=== PATIENT | female | born 1955 | race Caucasian/White ===

== ENCOUNTER 2018-05-11 13:45 | Outpatient (RCR) | payer BC, SELFPAY ==
--- NOTE | 2018-04-21 16:04 | PT.OIE ---
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) Other spondylosis with radiculopathy, cervical region (04/20/18) Abnormal posture (04/20/18) Weakness (04/20/18) Adverse effect of antineoplastic and immunosuppressive drugs, initial encounter (04/20/18) Past Medical History (Last Reviewed 03/17/18 @ 10:08 by Brayan Dickson DO) Hyperlipemia (Chronic Unknown) Panic disorder (Chronic Unknown) Breast cancer (Resolved Unknown) Chickenpox (Resolved Unknown) Measles (Resolved Unknown) Past Surgical History (Last Reviewed 03/17/18 @ 10:08 by Brayan Dickson DO) History of back surgery (Resolved 1986) Status post breast lumpectomy Provider Visit Care Team Role Provider Type Anyi Mcneil PA-C Primary Care Provider Advanced Records Management Director Specialty: Internal Medicine Address: [address] [place] [address] Email: Brayan Dickson DO Attending Provider Physician Specialty: Physiatry Pain Management Address: [address] [place] [address] Email: Physical Therapy Initial Evaluation PT-OP-A Visit Information Start: 04/13/18 07:24 Freq: Status: Active Protocol: Document 04/20/18 12:15 [facility] (Rec: 04/21/18 12:14 [facility] [id number]) Out-Patient Physical Therapy Visit Information Visit Information Visit Type Initial Evaluation Visit Start Time 12:15 Visit Stop Time 13:05 Total Visit Minutes 50 Visit Number 1 Number of FUR DRESSER Visits 0 PT-OP-B Current Condition Start: 04/13/18 07:24 Freq: Status: Active Protocol: Document 04/20/18 12:15 [facility] (Rec: 04/21/18 14:29 [facility] [id number]) Current Condition History of Current Condition Onset Date 3 months ago Current Complaints neck pain w/(B) radicular pain History of Current Condition Pt c/o neck/upper thoracic pain that radiates down post brachium & ulnar side of forearm into 3rd and 4th fingers. Pt reports unsure of how it started and reports burning sensation. She reports X-ray with results showing bone spurs in neck. Pt has hx of breast cancer, but is CA free now afer chemo & radiation & R lumpectomy in ' 06. She also has hx of appendix sx, gallbladder sx & sinus surgeries. 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 She has found that if she lengthens her neck & spine into good posture, the pain decreases. Prior Treatments and Tests Xray Future Testing and Treatments Planned MRI is ordered-pt has not completed this d/t cost Treatment Goals Patient/Caregiver Goals Dec pain PT-OP-C Subjective Start: 04/13/18 07:24 Freq: Status: Active Protocol: Document 04/20/18 12:15 [facility] (Rec: 04/21/18 12:14 [facility] [id number]) Patient Questionnaires Neck Disability Index NDI Score 16 Neck Disability Index Impairment 20 to 39% Impaired (Score 10- 19) OP-PT Pain Assessment Location Bilateral Neck Pain Location Details cervical down arms ulnar side to 3&4 fingers Intensity 7 Scale Used Numeric (1 - 10) Description Burning Other Pain Aggravating Factors laying flat, lifting, pain in middle of night Other Pain Alleviating Factors good posture (stretching up), heat PT-OP-F Manual Assessment Start: 04/13/18 07:24 Freq: Status: Active Protocol: Document 04/20/18 12:15 [facility] (Rec: 04/21/18 14:29 [facility] [id number]) Manual Assessments Soft Tissue Assessment Soft Tissue Mobility Assessment Tigthness in:UT, LS, scalenes, SO, pecs B PT-OP-J Posture/Palpation/Skin Start: 04/13/18 07:24 Freq: Status: Active Protocol: Document 04/20/18 12:15 [facility] (Rec: 04/21/18 14:29 [facility] [id number]) Posture Evaluation Comments Posture Comments Fwd head and neck position PT-OP-K Range of Motion Start: 04/13/18 07:24 Freq: Status: Active Protocol: Document 04/20/18 12:15 [facility] (Rec: 04/20/18 13:03 [facility] [id number]) Cervical Spine Range of Motion Cervical Spine Active Degrees Testing Position Sitting Flexion 53 Extension 56 Rotation Left 65 Rotation Right 43 Lateral Flexion Left 25 Lateral Flexion Right 35 Comments pain L T1 region with SB B; ext w/crepitis; pain w/ R rotation PT-OP-L Special Tests Start: 04/13/18 07:24 Freq: Status: Active Protocol: Document 04/20/18 12:15 [facility] (Rec: 04/20/18 13:03 [facility] [id number]) Special Tests Cervical Spine Special Tests Spurling's Test Test Results neg Neural Special Tests- Upper Body Upper Limb Tension Test Test Results passive abd Comments R 45 deg L 80 deg PT-OP-M Strength Start: 04/13/18 07:24 Freq: Status: Active Protocol: Document 04/20/18 12:15 [facility] (Rec: 04/20/18 13:03 [facility] [id number]) Shoulder Strength Shoulder Manual Muscle Testing Right Flexion 4- Good- Extension 4- Good- Abduction (C5) 4- Good- External Rotation 4 Good Internal Rotation 5 Normal Left Flexion 4 Good Extension 4+ Good+ Abduction (C5) 4 Good External Rotation 4 Good Internal Rotation 5 Normal Hand Cost Reduction Engineer/Pinch Strength Hand Strength Right Cost Reduction Engineer (lbs) 52 Left Cost Reduction Engineer (lbs) 65 PT-OP-Q Treatments Start: 04/13/18 07:24 Freq: Status: Active Protocol: Document 04/20/18 12:15 [facility] (Rec: 04/21/18 14:29 [facility] [id number]) Therapeutic Exercises Standing Exercises 2 Standing Exercise Name wall roll up with 90/90 ER 1 Standing Exercise Name pec straight arm & 90/90 ER stretch Side bilateral Therapeutic Activity Therapeutic Activity 1 Name sleeping position Comments s/l & supine PT-OP-T Assessment and Plan Start: 04/13/18 07:24 Freq: Status: Active Protocol: Document 04/20/18 12:15 [facility] (Rec: 04/21/18 14:29 [facility] [id number]) Physical Therapy Assessment Rehab Potential Rehabilitation Potential Good Evaluation Complexity Number of Personal Factors/Comorbidities 3 or More Number of Body Systems Impaired 4 or More Clinical Presentation at Evaluation Stable Impairments Impairments Functional Activities Pain Posture Soft Tissue Mobility Strength Goals Three Impairment ROM Halfway Goal (LTG) Pt will have normal ROM of neck to allow her to drive & do daily activities without pain. LTG Duration 06/22/18 Two Impairment strength Halfway Goal (LTG) 5/5 UE strength to allow pt to do volunteer activities without pain LTG Duration 06/21/18 One Impairment Posture Short Term Goal (STG) Pt will present with good posture without cueing. STG Duration 05/21/18 Assessment Summary Assessment Pt presents with cervical radiculopathy into BUEs. Pt does have overall UE weakness & mild fwd head & shoulders. Physical Therapy Plan Frequency and Duration Frequency of Treatment 1x/Week Duration of Treatment 2 months Plan of Care Start Date 04/20/18 Plan of Care End Date 06/21/18 Therapeutic Interventions Therapeutic Interventions Home Exercise Program Joint Mobilizations Manual Therapy Patient/Caregiver Education Self-Care/Home Management Soft Tissue Mobilization Taping Therapeutic Activities Therapeutic Exercises Modalities Cold Pack/Ice Massage Hot Packs Traction- Mechanical Next Visit Focus/Plan Next Note Type Treatment Note Next Visit Plan VBAT, tband for posture, axial elongation, foam roll, upper thoracic mobs
--- NOTE | 2018-04-21 16:04 | PT.OPPOC ---
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) Other spondylosis with radiculopathy, cervical region (04/20/18) Abnormal posture (04/20/18) Weakness (04/20/18) Adverse effect of antineoplastic and immunosuppressive drugs, initial encounter (04/20/18) Provider Visit Care Team Role Provider Type Anyi Mcneil PA-C Primary Care Provider Advanced Electrician Outside Specialty: Internal Medicine Address: [address] [place] [address], [id number] Email: Brayan Dickson DO Attending Provider Physician Specialty: Physiatry Pain Management Address: [address] [place] [address], [id number] Email: Plan Of Care PT-OP-T Assessment and Plan Start: 04/13/18 07:24 Freq: Status: Active Protocol: Document 04/20/18 12:15 [facility] (Rec: 04/21/18 14:29 [facility] [id number]) Physical Therapy Assessment Rehab Potential Rehabilitation Potential Good Evaluation Complexity Number of Personal Factors/Comorbidities 3 or More Number of Body Systems Impaired 4 or More Clinical Presentation at Evaluation Stable Impairments Impairments Functional Activities Pain Posture Soft Tissue Mobility Strength Goals Three Impairment ROM Seat Nailer Goal (LTG) Pt will have normal ROM of neck to allow her to drive & do daily activities without pain. LTG Duration 06/22/18 Two Impairment strength Senior Living Goal (LTG) 5/5 UE strength to allow pt to do volunteer activities without pain LTG Duration 06/21/18 One Impairment Posture Short Term Goal (STG) Pt will present with good posture without cueing. STG Duration 05/21/18 Assessment Summary Assessment Pt presents with cervical radiculopathy into BUEs. Pt does have overall UE weakness & mild fwd head & shoulders. Physical Therapy Plan Frequency and Duration Frequency of Treatment 1x/Week Duration of Treatment 2 months Plan of Care Start Date 04/20/18 Plan of Care End Date 06/21/18 Therapeutic Interventions Therapeutic Interventions Home Exercise Program Joint Mobilizations Manual Therapy Patient/Caregiver Education Self-Care/Home Management Soft Tissue Mobilization Taping Therapeutic Activities Therapeutic Exercises Modalities Cold Pack/Ice Massage Hot Packs Traction- Mechanical Next Visit Focus/Plan Next Note Type Treatment Note Next Visit Plan VBAT, tband for posture, axial elongation, foam roll, upper thoracic mobs Plan of Care Dates Plan of Care Start Date 04/20/18 Plan of Care End Date 06/21/18 Please Sign and Return: I have reviewed this Plan of Care and certify that the skilled therapy services above are required to meet the patient?s needs. Physician Signature Date Printed Name and Credentials Clinical Instructor Signature Printed Name and Credentials
--- NOTE | 2018-05-11 15:12 | PT.OTN ---
Current Diagnoses Drug-induced polyneuropathy (05/11/18) Other spondylosis with radiculopathy, cervical region (05/11/18) Adverse effect of antineoplastic and immunosuppressive drugs, initial encounter (05/11/18) Physical Therapy Treatment Note PT-OP-A Visit Information Start: 04/13/18 07:24 Freq: Status: Active Protocol: Document 05/11/18 15:05 [facility] (Rec: 05/11/18 15:11 [facility] [id number]) Out-Patient Physical Therapy Visit Information Visit Information Visit Type Treatment Note Visit Start Time 13:45 Visit Stop Time 14:30 Total Visit Minutes 45 Visit Number 2 Number of SEMIAUTOMATIC TAPER OPERATOR Visits 0 PT-OP-B Current Condition Start: 04/13/18 07:24 Freq: Status: Active Protocol: Document 04/20/18 12:15 [facility] (Rec: 04/21/18 14:29 [facility] [id number]) Current Condition History of Current Condition Onset Date 3 months ago Current Complaints neck pain w/(B) radicular pain History of Current Condition Pt c/o neck/upper thoracic pain that radiates down post brachium & ulnar side of forearm into 3rd and 4th fingers. Pt reports unsure of how it started and reports burning sensation. She reports X-ray with results showing bone spurs in neck. Pt has hx of breast cancer, but is CA free now afer chemo & radiation & R lumpectomy in ' 06. She also has hx of appendix sx, gallbladder sx & sinus surgeries. 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 She has found that if she lengthens her neck & spine into good posture, the pain decreases. Prior Treatments and Tests Xray Future Testing and Treatments Planned MRI is ordered-pt has not completed this d/t cost Treatment Goals Patient/Caregiver Goals Dec pain PT-OP-C Subjective Start: 04/13/18 07:24 Freq: Status: Active Protocol: Document 05/11/18 15:05 [facility] (Rec: 05/11/18 15:11 [facility] [id number]) OP-PT Subjective Patient Comments Patient Comments Pt reports she has had barely any pain down her arms or in her neck since last visit. PT-OP-F Manual Assessment Start: 04/13/18 07:24 Freq: Status: Active Protocol: Document 04/20/18 12:15 [facility] (Rec: 04/21/18 14:29 [facility] [id number]) Manual Assessments Soft Tissue Assessment Soft Tissue Mobility Assessment Tigthness in:UT, LS, scalenes, SO, pecs B PT-OP-J Posture/Palpation/Skin Start: 04/13/18 07:24 Freq: Status: Active Protocol: Document 04/20/18 12:15 [facility] (Rec: 04/21/18 14:29 [facility] [id number]) Posture Evaluation Comments Posture Comments Fwd head and neck position PT-OP-K Range of Motion Start: 04/13/18 07:24 Freq: Status: Active Protocol: Document 04/20/18 12:15 [facility] (Rec: 04/20/18 13:03 [facility] [id number]) Cervical Spine Range of Motion Cervical Spine Active Degrees Testing Position Sitting Flexion 53 Extension 56 Rotation Left 65 Rotation Right 43 Lateral Flexion Left 25 Lateral Flexion Right 35 Comments pain L T1 region with SB B; ext w/crepitis; pain w/ R rotation PT-OP-L Special Tests Start: 04/13/18 07:24 Freq: Status: Active Protocol: Document 04/20/18 12:15 [facility] (Rec: 04/20/18 13:03 [facility] [id number]) Special Tests Cervical Spine Special Tests Spurling's Test Test Results neg Neural Special Tests- Upper Body Upper Limb Tension Test Test Results passive abd Comments R 45 deg L 80 deg PT-OP-M Strength Start: 04/13/18 07:24 Freq: Status: Active Protocol: Document 04/20/18 12:15 [facility] (Rec: 04/20/18 13:03 [facility] [id number]) Shoulder Strength Shoulder Manual Muscle Testing Right Flexion 4- Good- Extension 4- Good- Abduction (C5) 4- Good- External Rotation 4 Good Internal Rotation 5 Normal Left Flexion 4 Good Extension 4+ Good+ Abduction (C5) 4 Good External Rotation 4 Good Internal Rotation 5 Normal Hand Dipping Machine Operator/Pinch Strength Hand Strength Right Dipping Machine Operator (lbs) 52 Left Dipping Machine Operator (lbs) 65 PT-OP-Q Treatments Start: 04/13/18 07:24 Freq: Status: Active Protocol: Document 05/11/18 15:05 [facility] (Rec: 05/11/18 15:11 [facility] [id number]) Therapeutic Exercises Supine Exercises 1 Supine Exercise Name Foam roll: Habd, flex, abd Sitting Exercises 1 Sitting Exercise Name LS, UT & scalene stretches Standing Exercises 2 Standing Exercise Name wall roll up with 90/90 ER Therapeutic Activity Therapeutic Activity 2 Name cervical posture position Comments edu on importance of posture & how it dec crepitis & how to get into good cervical position Manual Therapy Treatment Soft Tissue Mobilization 2 Body Location SOR Mobilization Type Sustained Pressure 1 Body Location UT/LS & scalenes Mobilization Type Rolling Joint Mobilizations 2 Joint C6 R& C7 L Direction FM w/cover position- transverse glides 1 Joint 1st rib Direction caudal PT-OP-T Assessment and Plan Start: 04/13/18 07:24 Freq: Status: Active Protocol: Document 05/11/18 15:05 [facility] (Rec: 05/11/18 15:11 [facility] [id number]) Physical Therapy Assessment Goals Three Impairment ROM Contracts Intern Goal (LTG) Pt will have normal ROM of neck to allow her to drive & do daily activities without pain. LTG Duration 06/22/18 Two Impairment strength Usp Goal (LTG) 5/5 UE strength to allow pt to do volunteer activities without pain LTG Duration 06/21/18 One Impairment Posture Short Term Goal (STG) Pt will present with good posture without cueing. STG Duration 05/21/18 Assessment Summary Assessment Improved rotation bilaterally after treatment. Pt did well with postural education and new exercises. Overall tighter in R UT/cervical region>L. Physical Therapy Plan Frequency and Duration Frequency of Treatment 1x/Week Duration of Treatment 2 months Plan of Care Start Date 04/20/18 Plan of Care End Date 06/21/18 Next Visit Focus/Plan Next Note Type Treatment Note Next Visit Plan VBAT, tband for posture & axial elongation
--- NOTE | 2018-06-24 09:39 | PT.OPDS ---
Current Diagnoses Drug-induced polyneuropathy (05/11/18) Other spondylosis with radiculopathy, cervical region (05/11/18) Adverse effect of antineoplastic and immunosuppressive drugs, initial encounter (05/11/18) Provider Visit Care Team Role Provider Type Anyi Mcneil PA-C Primary Care Provider Advanced Pecan Cleaner Specialty: Internal Medicine Address: [address] [place] [address], [address] Email: Brayan Dickson DO Attending Provider Physician Specialty: Physiatry Pain Management Address: [address] [place] [address], [address] Email: Visit Number Visit Number 2 Discharge Summary PT-OP-B Current Condition Start: 04/13/18 07:24 Freq: Status: Active Protocol: Document 04/20/18 12:15 [facility] (Rec: 04/21/18 14:29 [facility] [id number]) Current Condition History of Current Condition Onset Date 3 months ago Current Complaints neck pain w/(B) radicular pain History of Current Condition Pt c/o neck/upper thoracic pain that radiates down post brachium & ulnar side of forearm into 3rd and 4th fingers. Pt reports unsure of how it started and reports burning sensation. She reports X-ray with results showing bone spurs in neck. Pt has hx of breast cancer, but is CA free now afer chemo & radiation & R lumpectomy in ' 06. She also has hx of appendix sx, gallbladder sx & sinus surgeries. 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 She has found that if she lengthens her neck & spine into good posture, the pain decreases. Prior Treatments and Tests Xray Future Testing and Treatments Planned MRI is ordered-pt has not completed this d/t cost Treatment Goals Patient/Caregiver Goals Dec pain PT-OP-C Subjective Start: 04/13/18 07:24 Freq: Status: Active Protocol: Document 05/11/18 15:05 [facility] (Rec: 05/11/18 15:11 [facility] [id number]) OP-PT Subjective Patient Comments Patient Comments Pt reports she has had barely any pain down her arms or in her neck since last visit. PT-OP-F Manual Assessment Start: 04/13/18 07:24 Freq: Status: Active Protocol: Document 04/20/18 12:15 [facility] (Rec: 04/21/18 14:29 [facility] [id number]) Manual Assessments Soft Tissue Assessment Soft Tissue Mobility Assessment Tigthness in:UT, LS, scalenes, SO, pecs B PT-OP-J Posture/Palpation/Skin Start: 04/13/18 07:24 Freq: Status: Active Protocol: Document 04/20/18 12:15 [facility] (Rec: 04/21/18 14:29 [facility] [id number]) Posture Evaluation Comments Posture Comments Fwd head and neck position PT-OP-K Range of Motion Start: 04/13/18 07:24 Freq: Status: Active Protocol: Document 04/20/18 12:15 [facility] (Rec: 04/20/18 13:03 [facility] [id number]) Cervical Spine Range of Motion Cervical Spine Active Degrees Testing Position Sitting Flexion 53 Extension 56 Rotation Left 65 Rotation Right 43 Lateral Flexion Left 25 Lateral Flexion Right 35 Comments pain L T1 region with SB B; ext w/crepitis; pain w/ R rotation PT-OP-L Special Tests Start: 04/13/18 07:24 Freq: Status: Active Protocol: Document 04/20/18 12:15 [facility] (Rec: 04/20/18 13:03 [facility] [id number]) Special Tests Cervical Spine Special Tests Spurling's Test Test Results neg Neural Special Tests- Upper Body Upper Limb Tension Test Test Results passive abd Comments R 45 deg L 80 deg PT-OP-M Strength Start: 04/13/18 07:24 Freq: Status: Active Protocol: Document 04/20/18 12:15 [facility] (Rec: 04/20/18 13:03 [facility] [id number]) Shoulder Strength Shoulder Manual Muscle Testing Right Flexion 4- Good- Extension 4- Good- Abduction (C5) 4- Good- External Rotation 4 Good Internal Rotation 5 Normal Left Flexion 4 Good Extension 4+ Good+ Abduction (C5) 4 Good External Rotation 4 Good Internal Rotation 5 Normal Hand Housekeeping Lead/Pinch Strength Hand Strength Right Housekeeping Lead (lbs) 52 Left Housekeeping Lead (lbs) 65 PT-OP-T Assessment and Plan Start: 04/13/18 07:24 Freq: Status: Active Protocol: Document 06/24/18 09:39 [facility] (Rec: 06/24/18 09:39 [facility] [id number]) Physical Therapy Plan Discharge Physical Therapy Discharge Reasons Patient Request Discharge Comments Pt asked to d/c account and cancel all further appointments
== END 2018-07-15 10:43 ==
LOC: PHYS 13:45
PROVIDERS: PCP Physician Assistant; Visit Provider Physical Medicine & Rehabilitation
DX: M47.22 Other spondylosis with radiculopathy, cervical region (principal); G62.0 Drug-induced polyneuropathy; T45.1X5A Adverse effect of antineoplastic and immunosuppressive drugs, initial encounter
CPT/HCPCS: 97110; 97140; 97161; 97530

== ENCOUNTER → 2019-03-01 10:36 | Outpatient (CLI) | payer BC, SELFPAY ==
--- NOTE | 2019-03-01 | DI.MG.S_ITS ---
BILATERAL DIGITAL SCREENING MAMMOGRAM 3D/2D WITH CAD: 03/01/2019 CLINICAL: Routine screening. Personal history of right breast cancer. Family history of breast cancer. Comparison is made to exams dated: 05/29/2016 mammogram, 05/01/2015 mammogram, and 04/21/2013 mammogram - [facility]. The tissue of both breasts is heterogeneously dense. This may lower the sensitivity of mammography. Current study was also evaluated with a Computer Aided Detection (CAD) system. There are benign post operative findings in the right breast. There also are benign calcifications in both breasts. No significant masses, calcifications, or other findings are seen in either breast. There has been no significant interval change. IMPRESSION: There is no mammographic evidence of malignancy. A 1 year screening mammogram is recommended. This exam was interpreted at Station ID: [id number]. NOTE: For mammograms, a report in lay terms will be sent to the patient. Approximately 15% of breast malignancies will not be visualized mammographically. In the management of a palpable breast mass, a negative mammogram must not discourage biopsy of a clinically suspicious lesion. Electronically Signed By: Umesh reeves/namrata:03/01/2019 11:40:38 letter sent: Normal Exam ACR BI-RADS Category 2: Benign Finding(s) 3342F
== END ==
PROVIDERS: PCP Physician Assistant; Visit Provider Physician Assistant
DX: Z12.31 Encounter for screening mammogram for malignant neoplasm of breast (principal); Z85.3 Personal history of malignant neoplasm of breast; Z80.3 Family history of malignant neoplasm of breast
CPT/HCPCS: 77063; 77067

== ENCOUNTER → 2019-04-10 08:33 | Outpatient (CLI) | payer BC, SELFPAY ==
[2019-04-10 11:19] LABS: Alanine Aminotransferase 29 IU/L (9-52); Aspartate Aminotransferase 29 IU/L (14-36); BUN Creatinine Ratio 18.6 (6-22); Blood Urea Nitrogen 13 mg/dL (7-17); Calcium 9.1 mg/dL (8.4-10.2); Carbon Dioxide 30 mmol/L (22-32); Chloride 104 mmol/L (98-107); Cholesterol 193 mg/dL (140-199); Estimated Glomerular Filt Rate > 60.0 mL/min (>60); Glucose 82 mg/dL (80-110); HDL Cholesterol 85 mg/dL (40-60); HEMOLYSIS < 15 (0-50); LDL Cholesterol Calculated 88 mg/dL (<100); Potassium 4.1 mmol/L (3.4-5.1); Sodium 142 mmol/L (137-145); Triglycerides 100 mg/dL (35-150)
[2019-04-10 11:37] LABS: TSH w/ Reflex to FT4 3.75 uIU/mL (0.47-4.68)
== END ==
PROVIDERS: PCP Physician Assistant; Visit Provider Internal Medicine
DX: M54.5 Low back pain (principal); E78.5 Hyperlipidemia, unspecified; F33.9 Major depressive disorder, recurrent, unspecified
CPT/HCPCS: 36415; 80048; 80061; 84443; 84450; 84460

== ENCOUNTER → 2019-08-01 12:59 | Outpatient (CLI) | payer BC, SELFPAY ==
--- NOTE | 2019-08-01 | DI.MG.S_ITS ---
BILATERAL DIGITAL DIAGNOSTIC MAMMOGRAM 3D/2D: 08/01/2019 CLINICAL: Palpable left breast mass. Comparison is made to exams dated: 03/01/2019 mammogram, 05/29/2016 mammogram, and 05/01/2015 mammogram - [facility]. The tissue of both breasts is heterogeneously dense. This may lower the sensitivity of mammography. There are postsurgical and post-treatment changes of the right breast with overlying linear scar marker and skin thickening. There is a triangular marker overlying the skin of the superior breast at the site of the patient's reported palpable abnormality. There is an oval circumscribed mass immediately underlying the skin surface of the patient's superior left breast at the site of the patient's focal palpable abnormality. IMPRESSION: INCOMPLETE: NEEDS ADDITIONAL IMAGING EVALUATION Oval circumscribed mass immediately underlying the skin surface of the patient's superior left breast at the site of the patient's focal palpable abnormality. Targeted diagnostic ultrasound recommended for further evaluation, which will be performed immediately following this exam. This exam was interpreted at Station ID: [id number]. NOTE: For mammograms, a report in lay terms will be sent to the patient. Approximately 15% of breast malignancies will not be visualized mammographically. In the management of a palpable breast mass, a negative mammogram must not discourage biopsy of a clinically suspicious lesion. Electronically Signed By: Arash Andrews M.D. ecl/:08/01/2019 14:56:47 ACR BI-RADS Category 0: Incomplete [id number]
--- NOTE | 2019-08-01 | DI.US.S_ITS ---
LIMITED ULTRASOUND OF LEFT BREAST: 08/01/2019 CLINICAL: Palpable left breast lump. Comparison is made to exams dated: 08/01/2019 mammogram, 03/01/2019 mammogram, 05/29/2016 mammogram, 05/01/2015 mammogram, 04/21/2013 mammogram, and 04/18/2012 mammogram - [facility]. Color flow and real-time ultrasound of the left breast upper aspect were performed. Nava scale images of the real-time examination were reviewed. Target ultrasound of the superior left breast at the site of patient's focal palpable abnormality in the left breast at 11:30 position 1 cm from the nipple demonstrates a 0.6 x 0.5 x 0.4 cm oval circumscribed hypoechoic mass with adjacent but no internal vascularity on Doppler ultrasound. This correlates with findings seen on comparison mammography. There is a 0.4 x 0.4 x 0.2 cm oval indistinct hypoechoic probable complicated cyst with posterior acoustic enhancement and no internal vascularity on Doppler imaging located in the left breast at 4:00 position 3 cm from the nipple. No other suspicious masses or abnormalities are identified within the superior left breast on targeted ultrasound. 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 A followup diagnostic mammogram and targeted ultrasound in 6 months is recommended to demonstrate continued stability. 2) 0.4 x 0.4 x 0.2 cm probable complicated cyst in the left breast at 4:00 position 3 cm from the nipple. A followup diagnostic mammogram and targeted ultrasound in 6 months is recommended to demonstrate continued stability. This exam was interpreted at Station ID: [id number]. Electronically Signed By: Arash Andrews M.D. ecl/:08/01/2019 15:07:55 letter sent: Followup Recommended Ultrasound BI-RADS: 3 Probably benign
== END ==
PROVIDERS: PCP Physician Assistant; Visit Provider Physician Assistant
DX: R92.8 Other abnormal and inconclusive findings on diagnostic imaging of breast (principal); N63.22 Unspecified lump in the left breast, upper inner quadrant
CPT/HCPCS: 76642; 77066; G0279